=== PATIENT | female | born 1955 | race Caucasian/White ===

== ENCOUNTER 2021-10-20 07:44 | Emergency (ER) | payer MEDICAID ==
[2021-10-20] MEDS ORDERED: Sodium Chloride 0.9% 1,000 ML ONE (08:55)
[2021-10-20] MEDS ORDERED: Metoclopramide HCl 10 MG/2 ML VIAL ONE (08:55)
[2021-10-20] MEDS ORDERED: diphenhydrAMINE 50 MG/ML VIAL ONE (08:55)
== END 2021-10-20 10:11 | disposition home or self-care (01) ==
LOC: MADERS 07:44
DX: R51.9 Headache, unspecified (principal); R29.700 NIHSS score 0; I10 Essential (primary) hypertension; E11.9 Type 2 diabetes mellitus without complications; J44.9 Chronic obstructive pulmonary disease, unspecified; F17.210 Nicotine dependence, cigarettes, uncomplicated
CPT/HCPCS: 96374; 96375; J1200; J2765; J7050